=== PATIENT | female | born 1985 ===

== ENCOUNTER 2023-01-29 11:05 | Outpatient (CLI) | payer OTHER ==
[2023-01-29] VITALS (8 sets, daily range): BP systolic 130–148; BP diastolic 89–101; PULSE 99–120; TEMP 98.9
[~2023-01-29] VITALS: Ht 170.2 cm; Wt 86.0 kg
[~2023-01-29 11:05] MED LIST: DEPAKOTE500 MG PO; ELAVIL150 MG PO; NEURONTIN300 MG/CAP PO; NURTEC ODT75 MG PO; PHENERGAN 25 TA25 MG PO; UBRELVY100 MG PO; ZOFRAN8 MG PO
[2023-01-29] MEDS ORDERED: PAMELOR75 MG PO (11:34)
[2023-01-29] MEDS ORDERED: EMGALITY120 MG/1 M SQ (11:36)
--- NOTE | 2023-01-29 14:02 | NUR ---
pt tolerated infusion well and pt's vital sings remained within normal limits during infusion and observation. pt remained in unit for one hour following infusion per orders. IV was discontinued upon discharge and next appointment was made. pt remained free from concerns and complaints upon discharge and ambulates independently to main lobby.
== END 2023-01-29 13:20 | disposition home or self-care (01) ==
LOC: EUO 11:05
DX: G43.709 Chronic migraine without aura, not intractable, without status migrainosus (principal)
CPT/HCPCS: J3032

== ENCOUNTER 2023-04-28 09:58 | Outpatient (CLI) | payer OTHER ==
[~2023-04-28] VITALS: Ht 170.2 cm; Wt 86.5 kg
[~2023-04-28 09:58] MED LIST changes: +EMGALITY120 MG/1 M SQ; +PAMELOR75 MG PO
[2023-04-28] MEDS ORDERED: EPTINEZUMAB JJMR IV ONE (10:00)
[2023-04-28] MEDS ORDERED: NS IV ONE (10:00)
[2023-04-28 10:19] VITALS: BP 138/94; PULSE 106; TEMP 98.9
--- NOTE | 2023-04-28 10:53 | NUR ---
pt tolerated infusion well and ambulated to main lobby independently. vs remained within normal limits and IV discontinued. pt free from acute concerns and complaints at time of discharge.
--- NOTE | 2023-04-28 11:07 | NUR ---
pt refused to stay for hour observation following infusion. risks discussed with pt and pt verbalized understanding.
== END 2023-04-28 10:56 | disposition home or self-care (01) ==
LOC: EUO 09:58 → EDSTATUS 04-29 11:00 → EUO 04-29 11:00
DX: G43.709 Chronic migraine without aura, not intractable, without status migrainosus (principal)
CPT/HCPCS: J3032

== ENCOUNTER 2023-07-31 14:49 | Outpatient (RCR) | payer OTHER ==
[~2023-07-31] VITALS: Ht 170.2 cm; Wt 85.0 kg
[2023-07-31] VITALS (7 sets, daily range): BP systolic 135–146; BP diastolic 89–103; PULSE 77–86; TEMP 98.5
[2023-07-31] MEDS ORDERED: NS IV ONE (15:00)
[2023-07-31] MEDS ORDERED: EPTINEZUMAB JJMR IV ONE (15:00)
[2023-07-31] MEDS ORDERED: AJOVY225 MG/1.5 SQ (15:23)
[2023-07-31] MEDS ORDERED: VYEPTI100 MG/1 M IV (15:27)
[2023-07-31] MEDS ORDERED: EXCEDRIN1 TAB PO (15:28)
[2023-07-31] MEDS ORDERED: ALDACTONE 100M100 MG PO (15:28)
--- NOTE | 2023-07-31 16:00 | NUR ---
Pt tolerated infusion without issue. She will remain in dept for 1 hr per orders. Juice provided to pt, she denies other needs. Report given to EDUARD Dodson will with continue montioring.
== END 2023-07-31 17:00 ==
LOC: EUO 14:49
DX: G43.709 Chronic migraine without aura, not intractable, without status migrainosus (principal)
CPT/HCPCS: J3032